=== PATIENT | male | born 1995 | race Caucasian/White ===

== ENCOUNTER 2020-10-10 14:35 | Emergency (ER) | payer OTHER ==
[~2020-10-10] VITALS: Ht 177.8 cm; Wt 63.5 kg
[2020-10-10] MEDS ORDERED: ADDERALL 10 MG10 MG PO (14:51)
[2020-10-10 15:41] LABS: ABSOLUTE NEUTROPHILS 8.8 thou/uL (1.4-8.2); BASOPHILS 0.4 % (0.0-2.0); EOSINOPHILS 5.1 % (0.0-3.0); HEMATOCRIT 45.1 % (42.0-52.0); HEMOGLOBIN 14.8 gm/dL (14.0-18.0); LYMPHOCYTES 10.6 % (24.0-44.0); MCH 29.7 pg (26.0-34.0); MCHC 32.9 g/dL (28.0-37.0); MCV 90.2 fL (80.0-100.0); MONOCYTES 6.6 % (1.0-8.0); PLATELET COUNT 188 thou/uL (150-400); POLYS 77.3 % (36.0-66.0); RDW 13.8 % (10.5-14.5); WBC 11.4 thou/uL (4.0-11.0)
[2020-10-10 15:50] LABS: CALCIUM 9.4 mg/dL (8.5-10.1); CREATININE 0.7 mg/dL (0.7-1.3); POTASSIUM 4.1 mmol/L (3.5-5.1)
[2020-10-10 16:30] VITALS: BP 116/77
== END 2020-10-10 16:35 | disposition home or self-care (01) ==
LOC: ER 14:35
PROVIDERS: Nurse Practitioner
DX: R42 Dizziness and giddiness (principal); Z79.899 Other long term (current) drug therapy